=== PATIENT | female | born 1990 | race Caucasian/White ===

== ENCOUNTER 2024-01-31 06:38 | Inpatient (IN) | payer OTHER, SELFPAY ==
[2024-01-31] MEDS: PITOCIN 30 UNITS/NSS 500 ML IV (06:50)
[2024-01-31 07:02] LABS: Hematocrit 37.6 % (37.0-47.0); Hemoglobin 12.9 g/dL (12.0-16.0); Mean Corp Hgb Conc. 34.3 g/dL (33.0-37.0); Mean Corpuscular Hgb 27.4 pg (27.0-31.0); Platelet Count 234 10^3/uL (130-400); Red Cell Dist. Width 13.8 % (11.5-14.5); White Blood Cell Count 10.1 10^3/uL (4.8-10.8)
[2024-01-31 07:21] LABS: Cord ABG Comment CORD BLOOD
[2024-01-31 07:23] LABS: B.E. Cord ABG -0.7 mMOL/L; HCO3 Cord ABG 23.5 mmol/L; O2 Saturation % Cord ABG 65.6 %; PCO2 Cord ABG 37 mmHg; PO2 Cord ABG 27 mmHg; pH Cord ABG 7.41
[2024-01-31 07:28] LABS: B.E. Cord ABG -0.8 mMOL/L; HCO3 Cord ABG 26.3 mmol/L; O2 Saturation % Cord ABG 42.1 %; PCO2 Cord ABG 51 mmHg; PO2 Cord ABG 20 mmHg; pH Cord ABG 7.32
[2024-01-31 07:43] LABS: ALT (SGPT) 14 U/L (0-35); AST (SGOT) 23 U/L (14-36); Albumin 4.2 g/dl (3.5-5.0); Alkaline Phosphatase 214 U/L (38-126); Blood Urea Nitrogen 7 mg/dl (7-17); Calcium 9.7 mg/dl (8.4-10.2); Carbon Dioxide 20 mmol/L (22-30); Chloride 101 mmol/L (98-107); Glucose 94 mg/dl (70-99); Potassium 3.7 mmol/L (3.5-5.1); Sodium 135 mmol/L (135-145); Total Bilirubin 0.6 mg/dl (0.2-1.3); Total Protein 7.1 g/dl (6.3-8.2); eGFR > 60.00
[2024-01-31 08:01] VITALS: BP 138/98; BMI 27.5
[2024-01-31 08:10] LABS: INR 0.98; PT 12.8 Sec (11.4-14.6)
[2024-01-31 08:11] LABS: APTT 27.4 Sec (23.4-35.0); Fibrinogen 534 MG/DL (199-459)
[2024-01-31] MEDS: CYTOTEC 800 MCG RECTAL (08:18)
[2024-01-31 08:29] LABS: Amphetamines Positive (Negative); Barbiturates Negative (Negative); Benzodiazepines Negative (Negative); Buprenorphine Negative (Negative); Cocaine Negative (Negative); Marijuana Negative (Negative); Methadone Negative (Negative); Methamphetamines Positive (Negative); Opiates Negative (Negative); Phencyclidine Negative (Negative); Tricyclic Antidepressants Negative (Negative)
[2024-01-31 08:34] LABS: Protein/creatinine Ratio 0.5; Urine Protein 26 mg/dl
[2024-01-31 08:41] LABS: Fentanyl, Urine Negative (Negative)
[2024-01-31] MEDS: PRENATAL PLUS PO (09:21)
[2024-01-31] MEDS: TRANDATE 200 MG PO ×2 (10:06→20:06)
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
[2024-01-31 11:16] LABS: Urine Albumin Trace (Neg - Trace); Urine Bilirubin Negative (Negative); Urine Character Slightly Cloudy (Clear); Urine Color Straw; Urine Glucose Negative (Negative); Urine Ketone 1+ (Negative); Urine Leukocyte Trace (Negative); Urine Nitrite Negative (Negative); Urine Occult Blood 4+ (Negative); Urine Specific Gravity 1.015 (<1.030); Urine Urobilinogen Negative (Neg - 1+); Urine pH 6.5 (5.0-9.0)
[2024-01-31 11:42] LABS: Urine Bacteria Few (Negative)
[2024-01-31 11:43] LABS: Urine Red Blood Cell 26-30 /HPF (0-2)
[2024-02-01 04:25] LABS: Hematocrit 30.7 % (37.0-47.0); Hemoglobin 10.7 g/dL (12.0-16.0); Mean Corp Hgb Conc. 34.9 g/dL (33.0-37.0); Mean Corpuscular Hgb 28.6 pg (27.0-31.0); Mean Corpuscular Volume 82.1 fL (81.0-99.0); Mean Platelet Volume 11.1 fL (7.4-10.4); Platelet Count 197 10^3/uL (130-400); Red Blood Cell Count 3.74 10^6/uL (4.20-5.40); Red Cell Dist. Width 13.7 % (11.5-14.5); White Blood Cell Count 7.5 10^3/uL (4.8-10.8)
[2024-02-01] MEDS: FEOSOL 325 MG PO (10:28)
[2024-02-01] MEDS: PRENATAL PLUS 1 TABLET PO (10:29)
[2024-02-01] MEDS: TRANDATE PO ×2 (10:36→20:15)
--- NOTE | 2024-02-01 12:58 | CM ---
Addendum entered by Irais Grajeda 02/01/24 15:36:
[facility]ed [facility] [phone] - LM on VM requesting update on visit today
Original Note:
Received call from Maddi Pickard from [facility]
She will be coming to see Mom and infant today to conduct interview
floor worker well service assigned will be Yodit Mccoy
Spoke with Mom's nurse Neetu - aware of visit planned for today
Plan - pending C&Y evaluation/recommendations
[2024-02-02] MEDS: FEOSOL 325 MG PO (09:06)
[2024-02-02] MEDS: PRENATAL PLUS 1 TABLET PO (09:06)
--- NOTE | 2024-02-02 10:23 | CM ---
Called [facility] [phone] to speak to Yodit Mccoy, Travel Physical Therapist for family. LM on requesting call back to discuss case.
Awaiting call back
Plan - awaiting determination of C&Y assessment/plan for discharge
[2024-02-02 10:41] LABS: Syphilis/T. pallidum Ab Reflex Negative (Negative)
== END 2024-02-02 10:59 | disposition home or self-care (01) | DRG 805 ==
LOC: LDRP 06:38
PROVIDERS: ADMITTING PHYSICIAN Obstetrics & Gynecology
PROC: 10E0XZZ Delivery of Products of Conception, External Approach (ICD-10-PCS; 2024-01-31)
DX: O60.14X0 Preterm labor third trimester with preterm delivery third trimester, not applicable or unspecified (principal); O45.93 Premature separation of placenta, unspecified, third trimester; Z37.0 Single live birth; O14.04 Mild to moderate pre-eclampsia, complicating childbirth; O99.344 Other mental disorders complicating childbirth; F32.A Depression, unspecified; O32.1XX0 Maternal care for breech presentation, not applicable or unspecified; Z3A.35 35 weeks gestation of pregnancy; F90.9 Attention-deficit hyperactivity disorder, unspecified type
CPT/HCPCS: 88307; 80053; 80306; 80307; 81003; 81015; 82570; 82803; 84156; 85027; 85384; 85610; 85730; 86780; 86850; 86900; 86901